=== PATIENT | male | born 1960 | race Caucasian/White ===

== ENCOUNTER 2019-02-03 19:18 | Emergency (ER) | payer MEDICAID ==
[2019-02-03] MEDS: Sodium Chloride 0.9% 1,000 ML IV SCH (20:45)
--- NOTE | 2019-02-05 14:15 | CT ---
Date of Service: 02/03/19 Clinical Data: possible stroke UNENHANCED BRAIN CT: No priors. There are periventricular lucencies bilaterally consistent with small vessel ischemic change. No masses or mass effect. No intracranial hemorrhage. No evidence of acute or subacute infarct. No osseous abnormalities. IMPRESSION: No acute intracranial abnormalities. [id number] [facility]
--- NOTE | 2019-02-06 08:29 | ER ---
DATE OF SERVICE: 02/03/2019 REASON FOR EMERGENCY ROOM VISIT: Possible CVA. HISTORY: This 58-year-old man was brought in by ambulance after having been found lying on the floor with profound right-sided weakness. Apparently, family member saw him earlier today and noted that he did look rather poorly, but that was either late this morning or early this afternoon when he was last seen. Another family member came upon him and found him lying on the floor, was unable to speak and unable to move his right side. She immediately was concerned over the possibility of a stroke. Paramedics were called and ambulance arrived at the scene. It was noted at the time he was lethargic. He did have some slurred speech, but it was not understandable, and they were unable to elicit any movement on the right side in either the upper or lower extremity. It is noteworthy that, on talking with one of the sisters, he has had at least a couple of falls recently, and this was out of character for this gentleman. He has never had this before. By the time the patient arrived, his speech had improved significantly to the point where he was able to answer certain questions and speak reasonably and articulate reasonably well, although albeit slurred. It should be noted that the patient's blood pressure on scene was 120/71 with a heart rate of 85. PAST MEDICAL HISTORY: Only significant in that he was hospitalized for what sounds like liver failure over 20 years ago, due to excessive Tylenol ingestion due to a toothache. Apparently, the patient has an aversion to seeing physicians, and he does not have a provider. He does admit that he used to drink quite a bit, but he is not an active drinker at this time. FAMILY HISTORY: He has 1 brother who from cancer. Another sister who is deaf. His has maternal and paternal grandparents who both had a stroke. He does have 5 children who are all healthy. His mother from cancer. His father as a result of alcoholism. MEDICATIONS: None. ALLERGIES: NONE. REVIEW OF SYSTEMS: Difficult to obtain. All pertinent positives and negatives listed in the HPI. PHYSICAL EXAMINATION: He does make reasonably good eye contact. His gaze is normal. His blood pressure is 117/55, he is afebrile, pulse is 71, O2 sats 98%. HEENT: Head is normocephalic. TMs without any evidence of hemotympanum. Pupils are equally round and reactive to light. Oropharynx is dry. NECK: He does have bilateral carotid bruits, louder on the left than on the right. These do not seem to be radiating from the heart or aorta. There is no JVD. CHEST: Clear to auscultation. CARDIAC: Regular rate without murmur. ABDOMEN: Soft and nontender. EXTREMITIES: Normal pulses. No edema. NEUROLOGIC: His speech is somewhat slurred and dysarthric. He seems to have an expressive aphasia, but he is able to communicate somewhat and verbalize albeit slowly. He has no facial asymmetry that I can detect. Extraocular muscles are intact. He is unable to move the right upper or lower extremity. He is flaccid on the left side. He has reasonably good muscle strength in the upper and lower extremities. His sensation is intact in both upper and lower extremities. FURTHER EMERGENCY ROOM COURSE: Immediately upon arrival, he was assessed and he was sent for a CT scan of his head without contrast, which did not show any acute intracranial abnormality. IMPRESSION: Rule out cerebrovascular accident. PLAN: I discussed the patient's situation with Dr. Alex Moreno, who is the neurologist accreditation coordinator in [place]. It was his feeling that the patient might well have sustained a diffuse ischemic event affecting his left hemisphere. Simply it has not manifested itself on the CT without findings on the CT scan. He felt that very possibly he may well benefit from Interventional Neurology and suggested either [facility] or [facility] in [place]. I spoke to Dr. De La Cruz, neurologist at [facility], who felt that he should be hydrated and transferred as soon as possible. In the course of his evaluation, we did send for the helicopter, and [facility] did arrive. He was given 1 L of IV normal saline, and instructions were given to keep him on normal saline at 125 mL/h in transfer. He will be sent down to [facility] for admission to the Neurology service. I discussed this with the patient and his family. They are aware of the risks of something happening during transfer or even the risks of accidents, etc. They understand and agree. All questions were answered. JEZ /[id number]
== END 2019-02-03 21:23 ==
LOC: LB.ED 19:18
DX: R47.81 Slurred speech (principal); R53.1 Weakness
CPT/HCPCS: 36415; 70450; 80053; 85025; 85610; 85730; 93005; 96360; 99285; A0425; A0429; J7030

== ENCOUNTER 2024-06-23 11:02 | Emergency (ER) | payer MEDICARE, MEDICAID ==
[~2024-06-23 11:02] MED LIST: Nystatin Crm 30 GM Tube ONE
== END 2024-06-23 11:50 | disposition home or self-care (01) ==
LOC: LB.ED 11:02
DX: L03.032 Cellulitis of left toe (principal); B35.3 Tinea pedis; Z86.73 Personal history of transient ischemic attack (TIA), and cerebral infarction without residual deficits
CPT/HCPCS: 99283; A9270-GY